=== PATIENT | female | born 1990 | race African-American/Black ===

== ENCOUNTER 2023-03-05 21:37 | Inpatient (IN) | payer OTHER, SELFPAY ==
--- NOTE | 2023-03-05 22:34 | P.HPOB_ITS ---
OB HPI Date/Time Date of admission: 03/05/23 Date Patient Seen: 03/05/23 History of Present Condition Chief complaint: observation of labor TERRY Calculator Estimated Delivery Date Method Current WG Current Estimate 03/10/23 Manual 39w 2d Estimated Gestational Age (weeks): 39w2d : 3 Para: 2 Narrative: 32yo at 39w2d here with regular painful contractions. Pt reports contractions started earlier this afternoon. She felt a gush of fluid around 2hrs ago, and her contractions increased significantly in intensity and frequency after that point. She had some bloody show earlier this morning. She is feeling her baby move regularly. Limited records are currently available from the [facility]. The pt transferred care there at approximately 34wks. She was planning on a TOLAC there. She has a hx of 2 prior c-sections. Her first (2017) was due to nonreassuring FHT when the pt was 3cm. Her course was complicated by pre-eclampsia and hemorrhage requiring blood transfusion. Her second (2020) was also due to NRFHT after SROM. The pt did have borderline oligohydramnios at 37wks. 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 Indications Operative indications ( section): previous uterine surgery Preadmission Labs Last OB Lab Results: Blood Type Pending 03/05/23 22:10 Antibody Screen Pending 03/05/23 22:10 Hematocrit Pending 03/05/23 22:10 Hemoglobin Pending 03/05/23 22:10 External Labs Blood type OB HPI: O (+) positive -: Antibody screen: negative, HBsAG: negative, HIV: negative, RPR/VDLR: negative, Chlamydia screen: negative, Gonorrhea screen: negative and GBS status: negative -: Rubella: immune HCAB: negative Evaluation Evaluation Baseline heart rate: 140 Variability: Moderate (11-25) monitor accelerations: Present Monitor Decelerations: Absent Contraction Frequency (minutes): 3 Uterine Contraction Intensity: Strong/Firm Status: Category l Dilation (cm): 5 Effacement (%): 70 station: 0 Position of cervix: mid Consistency: soft Meds Home Medications and Allergies Allergies Allergy/AdvReac Type Severity Reaction Status Date / Time No Known Drug Allergies Allergy Verified 03/05/23 22:55 OB Exam Narrative Exam Narrative: Gen: NAD, sitting comfortably in bed, appears well CV: RRR, no murmurs Resp: clear to auscultation bilaterally Abd: soft, nontender, gravid Ext: no edema Assessment and Plan Assessment and Plan Assessment and Plan narrative: 32yo at 39w2d here in active labor with hx of 2 prior c-sections. Pt had planned for TOLAC at the , however unfortunately due to progressing labor we are unable to safely transfer. Pt does agree to here today. Risks vs benefits were discussed. Risks including but not limited to bleeding/hemorrhage, infection, injury to other organs such as bowel/bladder, injury to fetus. The pt agrees to blood transfusion if medically necessary. Consent was signed and placed in the pts chart. The pt will receive Ancef and Azithromycin prior to surgery. SCDs to be placed.
--- NOTE | 2023-03-05 22:58 | PM.PREOP ---
Pre-operative Note Interval Note History & Physical reviewed/Exam performed by Physician: Yes Changes to H&P: No
[2023-03-05 23:02] LABS: Add Manual Diff / Slide Review NO; Basophils Absolute Auto 0 /uL (0-100); Basophils Percent Auto 0.2 % (0-2); Eosinophils Absolute Auto 0 /uL (0-450); Hematocrit 36.7 % (36-46); Hemoglobin 11.9 g/dL (12.0-16.0); Lymphocytes Absolute Auto 1100 /uL (1100-4500); Lymphocytes Percent Auto 7.2 % (25-40); Mean Corpuscular HGB Conc 32.3 % (30-36); Mean Corpuscular Hemoglobin 27.4 PG (26-34); Mean Corpuscular Volume 84.7 fL (80-100); Monocytes Absolute Auto 700 /uL (0-900); Monocytes Percent Auto 4.9 % (3-14); Neutrophils Absolute Auto 13000 /uL (1500-7000); Neutrophils Percent Auto 87.7 % (50-75); Platelet Count 331 X10^3/uL (150-400); Red Blood Cell Count 4.33 X10^6/uL (4.0-5.2); Red Cell Distribution Width 15.9 % (11.6-14.8); White Blood Cell Count 14.8 X10^3/uL (4.5-11.0)
[2023-03-05] MEDS: CEFAZOLIN 2 GM/100 ML PREMIX 100 ML IV (23:25)
[2023-03-05] MEDS: AZITHROMYCIN 500 MG in DEXTROSE 5% IN WATER 250 ML 250 MG IV (23:31)
--- NOTE | 2023-03-05 23:45 | SUR.OPER ---
Supine on Padded OR bed, head on pillow, safety belt at thigh, arms secured on padded arm boards at <90 degrees abduction. Bump under right buttock. Legs uncrossed with pillow under knees, gel pad to heels, tape over blanket to lower legs.
[2023-03-05] MEDS: ACETAMINOPHEN IV 1,000 MG/100 ML VIAL 400 MG IV (23:50)
--- NOTE | 2023-03-05 23:51 | SUR.OPER ---
Viable baby boy born at 2351. Placenta delivered at 2353. Placenta and cord blood given to OB RN.
[2023-03-06 00:46] VITALS: BP 106/56; PULSE 84; RESP 15; TEMP 36.6; O2SAT 99
[2023-03-06 00:49] VITALS: BP 110/56; PULSE 86; RESP 12; O2SAT 98
--- NOTE | 2023-03-06 00:50 | P.OP_ITS ---
Operative Date/Time/Diagnoses Date of procedure: 03/06/23 Pre-op diagnosis: 39w2d gestation GBS positive Rh negative Hx of prior Post-op diagnosis: same Procedure & Clinicians Procedure: Repeat Same procedure as scheduled: Yes Indications: Hx of prior , active labor Surgeon: Alba Chavarria Payment Rep: Ronda Ball Anesthesia Type: Spinal Operative Notes Findings: Normal uterus, ovaries, and tubes Closure Type: primary Specimen(s): cord blood Intraoperative meds administered: Duramorph, Ketorolac and Pitocin Applied: Catheter Estimated Blood Loss (mL): 500 Procedure in detail: OPERATIVE COURSE: The patient was taken to the operating room where spinal anesthesia was placed. She was then prepared and draped in the normal sterile fashion in the dorsal supine position with a leftward tilt. Anesthesia was tested and found to be adequate. A Pfannensteil skin incision was then made with the scalpel and carried through to the underlying layer of fascia with the scalpel. The fascia was incised in the midline and the incision extended laterally with the Avery scissors. The superior aspect of the fascial incision was then grasped with Vanesa clamps, elevated with the help of the surgical coordinator, and the u nderlying rectus muscles dissected off bluntly and sharply where needed. Attention was then turned to the inferior aspect of the incision which, in a similar fashion, was grasped, tented up with Vanesa clamps, and the rectus muscle dissected off bluntly and sharply with Avery scissors. The rectus muscles were then in the midline, and the peritoneum was identified and entered bluntly. The peritoneal incision was then extended with good visualization of the bladder. The bladder was noted to be adherent to the superior portion of the uterus. The bovie was used to reduce the bladder. Retraction was provided by the surgical coordinator. The bladder blade was then reinserted and the lower uterine segment incised in a transverse fashion with the scalpel, with the surgical coordinator providing suction. The uterine incision was then extended superolaterally by pulling superolaterally on both sides. Membranes were ruptured and fluid was clear. The bladder blade was removed the infant's head was flexed out of OP position and delivered atraumatically, with fundal pressure by the surgical coordinator. The nose and mouth were suctioned with bulb suction and the cord was clamped and cut after 1 minute. The infant was handed off to the waiting nursing staff. Cord blood was collected for Rh status. The placenta was then delivered with gentle cord traction. The uterus was then cleared of all clots and debris. The uterine incision was repaired with 1- Chromic in a running, locked fashion. A second layer of the same suture was used for imbrication. Two [id number] sutures with 1-Chromic were completed on the right side of the incision for excellent hemostasis. The gutters were cleared of all clots. Hysterotomy was investigated and found to be hemostatic. The peritoneum was closed with O Vicryl. The fascia was reapproximated with O Vicryl in a running fashion. The subcutaneous tissue was reapproximated with 3-O Vicryl. The skin was closed with 4-O Vicryl. The surgical coordinator helped with retraction during closures. SPONGE AND NEEDLE COUNTS: Correct x3. DRESSING: Aquacel ANTICOAGULATION: SCDs applied prior to Surgery Preop antibiotics given (see MAR). The patient was taken to recovery room having tolerated procedure well. Complications: none Baby 1: Infant Gender: Male Presentation: vertex Position: Left Occiput Posterior Placental Delivery Description: Spontaneous Cord Vessel Description: 3 Vessels and Nuchal Cord score (1 min): 7 score (5 min): 8 weight: 8 lb 12.461 oz Post-operative Condition: stable Disposition: PACU Aftercare: routine postop
[2023-03-06 00:53] VITALS: BP 113/57; PULSE 84; RESP 21; O2SAT 98
[2023-03-06] MEDS: METHYLERGONOVINE 0.2 MG/ML VIAL (01:10)
[2023-03-06] MEDS: OXYTOCIN PREMIX 30 UNIT/500 ML PLAST..BAG 150 UNIT IV (01:47)
[2023-03-06] MEDS: LACTATED RINGERS 1,000 ML 999 ML IV (01:50)
[2023-03-06 05:03] VITALS: BP 136/86
[2023-03-06] MEDS: KETOROLAC 30 MG/ML VIAL IV ×3 (05:47→18:27)
[2023-03-06] MEDS: ACETAMINOPHEN 325 MG TABLET 650 MG PO ×3 (05:47→18:27)
[2023-03-06] MEDS: ONDANSETRON 4 MG/2 ML INJ IV (05:48)
[2023-03-06 05:54] LABS: Add Manual Diff / Slide Review NO; Basophils Absolute Auto 0 /uL (0-100); Basophils Percent Auto 0.1 % (0-2); Eosinophils Absolute Auto 0 /uL (0-450); Hematocrit 30.7 % (36-46); Hemoglobin 10.2 g/dL (12.0-16.0); Lymphocytes Absolute Auto 1500 /uL (1100-4500); Lymphocytes Percent Auto 8.8 % (25-40); Mean Corpuscular HGB Conc 33.2 % (30-36); Mean Corpuscular Hemoglobin 27.6 PG (26-34); Mean Corpuscular Volume 83.3 fL (80-100); Monocytes Absolute Auto 1400 /uL (0-900); Monocytes Percent Auto 8.5 % (3-14); Neutrophils Absolute Auto 14000 /uL (1500-7000); Neutrophils Percent Auto 82.6 % (50-75); Platelet Count 281 X10^3/uL (150-400); Red Blood Cell Count 3.69 X10^6/uL (4.0-5.2); Red Cell Distribution Width 15.9 % (11.6-14.8)
[2023-03-06] MEDS: DOCUSATE 100 MG CAPSULE PO (09:34)
[2023-03-06] MEDS: PRENATAL VIT,CALC/IRON/FOLIC 1 TABLET 1 TAB PO (09:34)
[2023-03-06] MEDS: FERROUS SULFATE 325 MG TABLET PO (09:34)
[2023-03-06] MEDS: OXYCODONE IR 5 MG TABLET PO ×2 (14:25→21:19)
[2023-03-07] MEDS: ACETAMINOPHEN 325 MG TABLET 650 MG PO ×3 (00:02→11:34)
[2023-03-07] MEDS: IBUPROFEN 600 MG TABLET PO ×3 (00:03→11:35)
[2023-03-07] MEDS: OXYCODONE IR 5 MG TABLET PO ×3 (00:55→12:11)
[2023-03-07 05:19] LABS: Add Manual Diff / Slide Review NO; Basophils Absolute Auto 100 /uL (0-100); Basophils Percent Auto 0.6 % (0-2); Eosinophils Absolute Auto 100 /uL (0-450); Eosinophils Percent Auto 1.2 % (2-4); Hematocrit 29.6 % (36-46); Hemoglobin 9.5 g/dL (12.0-16.0); Lymphocytes Absolute Auto 3300 /uL (1100-4500); Mean Corpuscular HGB Conc 32.3 % (30-36); Mean Corpuscular Hemoglobin 27.4 PG (26-34); Mean Corpuscular Volume 84.9 fL (80-100); Monocytes Absolute Auto 1300 /uL (0-900); Monocytes Percent Auto 9.8 % (3-14); Neutrophils Absolute Auto 7900 /uL (1500-7000); Neutrophils Percent Auto 62.4 % (50-75); Platelet Count 280 X10^3/uL (150-400); Red Blood Cell Count 3.48 X10^6/uL (4.0-5.2); Red Cell Distribution Width 16.1 % (11.6-14.8); White Blood Cell Count 12.7 X10^3/uL (4.5-11.0)
[2023-03-07] MEDS: OXYCODONE IR 5 MG TABLET 10 MG PO (05:41)
[2023-03-07] MEDS: FERROUS SULFATE 325 MG TABLET PO (09:35)
[2023-03-07] MEDS: DOCUSATE 100 MG CAPSULE PO (09:35)
[2023-03-07] MEDS: PRENATAL VIT,CALC/IRON/FOLIC 1 TABLET 1 TAB PO (09:35)
[2023-03-07] MEDS: SIMETHICONE 80 MG TABLET PO (09:35)
[2023-03-07] MEDS: MAGNESIUM HYDROXIDE 30 ML UDC PO (09:35)
--- NOTE | 2023-03-07 11:32 | PM.OBDS.1 ---
Discharge Providers Provider Date of admission: 03/05/23 21:37 Discharge Date: 03/07/23 Consults: 03/06/23 01:08 Consult to Equipment Operating Engineer Routine Comment: Discharge provider: Alba Chavarria MD Summary Hospital Course Date Patient Seen: 03/07/23 Diagnoses: 39w2d gestation GBS positive Rh negative Hx of prior Hospital Course: The pt presented in active labor, with hx of 2 prior c-sections. Due to her cervix rapidly changing, the pt could not be transferred to another hospital, as she was hoping to TOLAC. The pt underwent repeat without any complications and delivered a viable baby boy. , there were no complications. At the time of discharge she was voiding, ambulating, and passing flatus without difficulty. Her lochia was decreasing appropriately. Her pain was well controlled. She was with good latch. She will f/u in 6 weeks for check. Peripartum Data Infant Delivery Method: Section Procedures: Repeat complications: none [place] 1: Gender: Male Disposition of : home Discharge Diagnosis (1) S/P : Status: Acute Time Spent with Patient Time attestation: Total time spent providing and/or coordinating discharge services: Objective Labs 03/07/23 05:00 Labs: Laboratory Results - last 24 hr 03/07/23 05:00 WBC 12.7 H RBC 3.48 L Hgb 9.5 L Hct 29.6 L MCV 84.9 MCH 27.4 MCHC 32.3 RDW 16.1 H Plt Count 280 Neut % (Auto) 62.4 D Lymph % (Auto) 26.0 [place] % (Auto) 9.8 Eos % (Auto) 1.2 L Baso % (Auto) 0.6 Neut # (Auto) 7900 H Lymph # (Auto) 3300 [place] # (Auto) 1300 H Eos # (Auto) 100 Baso # (Auto) 100 Exam Vital Signs (past 8 hours): Oxygen Delivery Method Room Air Resp Auscultation: clear to auscultation bilaterally Cardio Rate: regular rate Rhythm: regular rhythm Heart Sounds: S1 normal, S2 normal and no murmurs GI Inspection: non-distended and incision (dressing c/d/i) Palpation: soft, No guarding and tender (appropriately tender) Auscultation: normal bowel sounds Other: fundus firm and below the umbilicus Extrem Right upper extremity: no edema Discharge Plan Discharge Plan Patient Disposition: Home Discharge orders & Medications Prescriptions: New acetaminophen 325 mg Tablet 650 mg PO Q6H Qty: 60 0RF ferrous sulfate 325 mg (65 mg iron) Tablet 325 mg PO DAILY Qty: 30 0RF docusate sodium 100 mg Capsule 100 mg PO DAILY Qty: 30 0RF ibuprofen 600 mg Tablet 600 mg PO Q6H Qty: 60 0RF oxycodone 5 mg Tablet 5 mg PO Q4H PRN (Reason: Pain, Moderate (4-6)) Qty: 30 0RF Follow up/Referrals: Alba Chavarria MD [Physician] - (Incision check w/ Dr. Chavarria: Saturday, Mar.11 @ 2:15pm) Diet/Activity/Treatments Diet: Diet as Tolerated and Regular Skin/Wound/Dressing Care Report to your healthcare provider any signs of infection, such as:: chills, fever, increased pain and unusual drainage Visit Report/Discharge Packet Instructions: DI for Stand Alone Forms: Discharge: Care, Patient Portal/API, Stroke Signs & Symptoms Discharges patient from system. Discharge Date/Time: 03/07/23 12:35
[2023-03-07 11:47] VITALS: BP 112/69; PULSE 74; RESP 18; TEMP 36.2
== END 2023-03-07 12:35 | disposition home or self-care (01) | DRG 788 ==
PROVIDERS: Admitting Provider Family Medicine; Referring Provider Family Medicine; Visit Provider Family Medicine
PROC: (CPT 59514; principal; 2023-03-05 23:30)
DX: O34.211 Maternal care for low transverse scar from previous cesarean delivery (principal); Z3A.39 39 weeks gestation of pregnancy; Z37.0 Single live birth; O99.824 Streptococcus B carrier state complicating childbirth
CPT/HCPCS: 36415; 59050; 59514; 59515; 85025; 86850; 86900; 86901; 99222; 99238; G0379; J0131; J0690; J1885; J2210; J2274; J2405; J2590; J2704